=== PATIENT | male | born 1970 | race Caucasian/White ===

== ENCOUNTER 2017-11-10 11:51 | Emergency (ER) | payer SELFPAY ==
[~2017-11-10] VITALS: Ht 182.9 cm; Wt 73.0 kg
[2017-11-10 11:53] VITALS: BP 132/86
[2017-11-10] MEDS ORDERED: TETRACAINE 0.5% OPHTH DROPS 4ML OP ONE (12:45)
[2017-11-10] MEDS ORDERED: FLUORESCEIN SODIUM 1MG/STRIP OP ONE (12:45)
[2017-11-10] MEDS: TOBRAMYCIN/DEXAMETH 0.1/0.3% OPHTH SUSP 2.5ML RIGHTEYE SCH ×2 (14:10→14:15)
[2017-11-10] MEDS ORDERED: IBUPROFEN 600MG TABLET PO ONE (14:30)
== END 2017-11-10 14:32 | disposition home or self-care (01) ==
LOC: ER 11:51
DX: S05.01XA Injury of conjunctiva and corneal abrasion without foreign body, right eye, initial encounter (principal); R03.0 Elevated blood-pressure reading, without diagnosis of hypertension; W10.8XXA Fall (on) (from) other stairs and steps, initial encounter; W22.8XXA Striking against or struck by other objects, initial encounter; Y93.89 Activity, other specified; Y92.018 Other place in single-family (private) house as the place of occurrence of the external cause
CPT/HCPCS: 99284